=== PATIENT | male | born 1975 | race Caucasian/White ===

== ENCOUNTER 2020-05-31 07:34 | Outpatient (CLI) | payer BC, SELFPAY ==
[2020-06-03 23:30] LABS: SARS-CoV-2 RNA Undetected (Undetected); SARS-CoV-2 Specimen Source Nasopharynx
== END 2020-05-31 07:54 ==
PROVIDERS: PCP Nurse Practitioner Family; Visit Provider Nurse Practitioner Family
DX: Z11.59 Encounter for screening for other viral diseases (principal)
CPT/HCPCS: U0003

== ENCOUNTER 2025-04-09 02:10 | Outpatient (CLI) | payer OTHER, SELFPAY ==
[2025-04-09 12:35] LABS: Hemoglobin A1C 5.2 % (<5.7)
[2025-04-09 13:00] LABS: Calculated LDL 177 mg/dL (<100); Cholesterol 255 mg/dL (<200); HDL Cholesterol 50 mg/dL (>or=40); Triglyceride 143 mg/dL (<150)
== END 2025-04-09 02:11 | disposition home or self-care (01) ==
LOC: LOS 02:11
PROVIDERS: PCP Nurse Practitioner Family; Visit Provider Nurse Practitioner Family
DX: Z13.220 Encounter for screening for lipoid disorders (principal); Z13.1 Encounter for screening for diabetes mellitus
CPT/HCPCS: 36415; 80061; 83036